=== PATIENT | female | born 1975 | race Caucasian/White ===

== ENCOUNTER 2025-07-01 10:36 | Day surgery (SDC) | payer BC ==
[~2025-07-01 10:36] MED LIST: Midazolam 1 MG/ML 2 ML SDV ONE; Propofol 200 MG/20 ML SDV ONE; Sodium Chloride 0.9% 10 ML Syringe FLUSH PRN
[2025-07-01] MEDS: Lactated Ringers 1,000 ML IV SCH (12:07)
== END 2025-07-01 14:00 | disposition home or self-care (01) ==
LOC: LL.SDS 10:36
PROVIDERS: ATTEND Surgery
DX: K31.89 Other diseases of stomach and duodenum (principal); D50.9 Iron deficiency anemia, unspecified; E11.9 Type 2 diabetes mellitus without complications; E78.2 Mixed hyperlipidemia; E66.812 Obesity, class 2; Z91.09 Other allergy status, other than to drugs and biological substances; Z79.84 Long term (current) use of oral hypoglycemic drugs; Z68.36 Body mass index [BMI] 36.0-36.9, adult; Z79.899 Other long term (current) drug therapy
CPT/HCPCS: 00813; J1596; J2250; J2704; J7120